=== PATIENT | male | born 1980 | race Two or more races ===

== ENCOUNTER 2020-01-14 16:11 | Emergency (ER) | payer MEDICAID, OTHER ==
[~2020-01-14] VITALS: Ht 190.5 cm; Wt 136.1 kg
[2020-01-14 16:39] VITALS: BP 149/91
[2020-01-14] MEDS ORDERED: KETOROLAC TROMETH 60MG/2ML VIAL IM ONE (17:00)
== END 2020-01-14 18:02 | disposition home or self-care (01) ==
LOC: ER 16:11
DX: M54.16 Radiculopathy, lumbar region (principal)
CPT/HCPCS: 72100; 96372; 99283; J1885